=== PATIENT | male | born 2000 | race Caucasian/White ===

== ENCOUNTER 2025-01-06 17:36 | Emergency (ER) | payer OTHER ==
[~2025-01-06] VITALS: Ht 182.9 cm; Wt 106.6 kg
[2025-01-06 18:23] LABS: BASOPHILS % 0.3 % (0.0-1.0); EOSINOPHILS % 1.7 % (0.0-6.0); LYMPHOCYTES % 24.9 % (18.0-39.1); MONOCYTES % 5.6 % (4.4-11.3); NEUTROPHILS % 67.1 % (38.7-80.0); RED CELL DISTRIBUTION WIDTH 12.8 % (11.7-14.4)
[2025-01-06] MEDS: SODIUM CHLORIDE 0.9% 1000ML 1,000 ML IV STA (18:30)
[2025-01-06 18:50] LABS: EST GLOMERULAR FILTRATION RATE 123.0 ML/MIN (>=60)
[2025-01-06 19:55] VITALS: PULSE 76; RESP 16; TEMP 98.5
[2025-01-06] MEDS ORDERED: LISINOPRIL10 MG PO (19:56)
[2025-01-06 20:04] LABS: AMPHETAMINES SCREEN,URINE NEGATIVE (NEGATIVE); CANNABINOIDS SCREEN,URINE POSITIVE (NEGATIVE); COCAINE SCREEN,URINE NEGATIVE (NEGATIVE); OPIATES SCREEN,URINE NEGATIVE (NEGATIVE)
[2025-01-06 20:05] LABS: METHADONE SCREEN, URINE NEGATIVE (NEGATIVE)
[2025-01-06 20:28] VITALS: BP 166/109; PULSE 73; RESP 16; TEMP 98.6; O2SAT 100
== END 2025-01-06 20:34 | disposition home or self-care (01) ==
LOC: ER 17:43
DX: R06.02 Shortness of breath (principal); R03.0 Elevated blood-pressure reading, without diagnosis of hypertension; M25.511 Pain in right shoulder; I10 Essential (primary) hypertension; F41.9 Anxiety disorder, unspecified; F32.A Depression, unspecified
CPT/HCPCS: 36415; 71045; 73030; 80053; 80307; 82550; 83690; 83880; 84484; 85025; 93005; 99284; J7030